=== PATIENT | female | born 1965 | race African-American/Black ===

== ENCOUNTER 2022-03-22 16:24 | Emergency (ER) | payer MEDICARE, MEDICAID ==
[2022-03-22] MEDS ORDERED: Ketorolac Tromethamine 30 MG/ML VIAL ONE (17:00)
== END 2022-03-22 17:52 | disposition home or self-care (01) ==
LOC: CSHERS 16:24
DX: M25.531 Pain in right wrist (principal); E11.9 Type 2 diabetes mellitus without complications; K21.9 Gastro-esophageal reflux disease without esophagitis; I10 Essential (primary) hypertension
CPT/HCPCS: 96372; J1885